=== PATIENT | female | born 1970 | race Caucasian/White ===

== ENCOUNTER → 2016-09-28 | Outpatient (CLI) | payer BC ==
[~2016-09-28] MED LIST: CALC-5 PO; FLUO20CA34 PO; IMITREX PO; IRON PO; LEVO100T PO; MULT-506 PO; OMEG10007 PO; OMEP40CA41 PO; OXYC-57 PO; TRAZ50TA35 PO; [UNRECOGNIZED DRUG - REMARK]
== END | disposition home or self-care (01) ==
LOC: C.PAPS 14:29
PROVIDERS: ATTEND Obstetrics & Gynecology
DX: R68.89 Other general symptoms and signs (principal)

== ENCOUNTER 2016-11-02 04:48 | Observation (INO) | payer BC ==
--- NOTE | 2016-10-09 10:06 | PAT Medication Instructions ---
Service Date Oct 09, 2016. Current Home Medication List Calcium-Magnesium W/ Vitamin D (Calcium 500), 600 MG PO QAM Fluoxetine Hcl (Prozac), 20 MG PO QAM Levothyroxine Sodium (Synthroid), 100 MCG PO QAM Multivitamin (Multivitamin), 1 TAB PO QAM Omeprazole (Prilosec), 40 MG PO QAM [Imitrex], 1 TAB PO PRN [Iron], 1 TAB PO QAM Medication Instructions For Your Scheduled Surgery - Hold the following medications the morning of surgery: Calcium-Magnesium W/ Vitamin D (Calcium 500), 600 MG PO QAM [Iron], 1 TAB PO QAM Multivitamin (Multivitamin), 1 TAB PO QAM - Take the following medications the morning of surgery with a sip of water OTHERWISE NOTHING TO EAT OR DRINK AFTER MIDNIGHT: Omeprazole (Prilosec), 40 MG PO QAM Fluoxetine Hcl (Prozac), 20 MG PO QAM Levothyroxine Sodium (Synthroid), 100 MCG PO QAM [Imitrex], 1 TAB PO PRN If you have any questions please call us at [phone] or [phone] or [phone]
[2016-10-09 10:43] LABS: BASO % 0.5 %; BASO ABS # 0.03 K/uL (0-0.2); COMPLETE YES; EOS % 2.5 %; HEMATOCRIT 37.4 % (37-47); IG% 0.5 %; LYMPH % 22.2 %; LYMPH ABS # 1.43 K/uL (1.2-3.4); MEAN CELL VOLUME 89.9 fL (80-100); MEAN CORPUSCULAR HEMOGLOBIN 30.3 pg (25-34); MEAN CORPUSCULAR HGB CONC 33.7 g/dl (32-36); MEAN PLATELET VOLUME 12.1 fL (7.4-10.4); MONO % 5.9 %; NEUT % 68.4 %; PLATELET COUNT 198 K/uL (130-400); RED BLOOD COUNT 4.16 M/uL (4.2-5.4); WHITE BLOOD COUNT 6.45 K/uL (4.8-10.8)
[2016-10-09 11:04] LABS: CALCIUM 8.9 mg/dl (8.5-10.1); CREATININE 0.85 mg/dl (0.60-1.20); POTASSIUM 4.1 mmol/L (3.5-5.1)
--- NOTE | 2016-11-01 10:40 | HISTORY & PHYSICAL EXAMINATION ---
DATE OF ADMISSION: 11/02/2016 HISTORY OF PRESENT ILLNESS: This is a 46-year-old G1, P1 with a prior vaginal delivery who has had ongoing menstrual issues. The patient previously underwent an endometrial ablation in 2014. She never stopped bleeding for any length of time and actually initially presented for a TLH in October of 2015, however says she had second thoughts at that time and decided not to have surgery. She has now returned stating that her periods are occurring approximately every other month but include pain so difficult that it causes nausea and sometimes vomiting and the bleeding can range from very light to heavy enough to cause her to change a pad and tampon every several hours. 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 She wishes definitive treatment at this time requests to go forward with a total laparoscopic hysterectomy. The patient will be retaining her ovaries. ALLERGIES: BEES AND WASPS. MEDICATIONS: Fish oil, iron supplement, calcium, Imitrex as needed, trazodone at bedtime, Prozac 20 mg daily, women's multivitamin, omeprazole 40 daily, and Synthroid 100 mcg daily. PAST MEDICAL HISTORY: Anxiety, breast hypertrophy, chronic rhinitis, dysmenorrhea, heartburn, gastroesophageal reflux, menorrhagia and a history of an HPV test that was positive in 2015; however, had normal cytology at that time. Please note her Pap in August of 2016 was normal with HPV negative. Additional past medical history: Arthritis, depression, hypothyroidism and migraines. PAST SURGICAL HISTORY: Cryo on the cervix and tubal ligation. FAMILY HISTORY: Maternal aunt with uterine cancer. Otherwise, negative for breast, colon or ovarian cancers. SOCIAL HISTORY: , nonsmoker, nonuser of alcohol or drugs. PHYSICAL EXAMINATION: VITAL SIGNS: At last exam were 110/72, BMI of 30. GENERAL: The patient was generally alert, in no acute distress. HEART: Regular rate and rhythm. LUNGS: Clear to auscultation bilaterally. ABDOMEN: Soft and nontender. GENITOURINARY EXAMINATION: Showed a normal sized uterus approximately 9-10 cm and ovaries normal bilaterally. ASSESSMENT AND PLAN: A 46-year-old with menorrhagia, dysmenorrhea, status post tubal and ablation who presents for definitive treatment via TLH. Risks, benefits and alternatives have been discussed at length with the patient using illustrations as well over the course of multiple visits throughout the last year. The patient desires to proceed and surgery is planned for 11/02/2016.
[~2016-11-02] VITALS: Ht 160 cm; Wt 78.8 kg
[2016-11-02] VITALS (7 sets, daily range): BP systolic 108–123; BP diastolic 63–78; PULSE 61–95; TEMP 36.3–36.7; O2SAT 93–97; Ht 160 cm; Wt 78.8 kg
[~2016-11-02 04:48] MED LIST changes: -OMEG10007 PO; -OXYC-57 PO; -TRAZ50TA35 PO; -[UNRECOGNIZED DRUG - REMARK]
[2016-11-02] MEDS ORDERED: CEFAZOLIN 2000 MG/60 ML D5W 50 ML IV SCH (06:00)
[2016-11-02] MEDS ORDERED: LACTATED RINGER'S 1000ML 1,000 ML IV SCH ×2 (06:00)
[2016-11-02] MEDS ORDERED: FENTANYL CITRATE INJ 50 MCG/1 ML 2 ML VIAL ONE ×2 (06:48→09:31)
[2016-11-02] MEDS ORDERED: MIDAZOLAM HCL 1 MG/ML 2ML VIAL ONE (06:48)
[2016-11-02] MEDS ORDERED: METHYLENE BLUE 0.5% 10 ML VIAL ONE (06:51)
[2016-11-02] MEDS ORDERED: SCOPOLAMINE 1.5 MG TDSY TD ONE (07:13)
--- NOTE | 2016-11-02 07:20 | History & Physical Bridge - [place] ---
H&P Re-Evaluation Bridge Note: I have examined the patient, reviewed the History & Physical and in the interval since the performance of the History & Physical I have noted the following changes of clinical significance: No changes noted
[2016-11-02] MEDS ORDERED: HYDROmorphone INJ 2 MG/ML SYR/VIAL ONE (07:55)
[2016-11-02] MEDS ORDERED: NEOSTIGMINE METHYLSULFATE 5 MG/5 ML SYR ONE (08:02)
[2016-11-02] MEDS ORDERED: DEXAMETHASONE SOD INJ 4 MG/ML VIAL ONE (08:02)
[2016-11-02] MEDS ORDERED: GLYCOPYRROLATE INJ 0.2 MG/ML VIAL ONE (08:02)
[2016-11-02] MEDS ORDERED: PROPOFOL IV EMULSION 10 MG/ML 20 ML VIAL IV ONE (08:02)
[2016-11-02] MEDS ORDERED: ROCURONIUM BROMIDE 10 MG/ML 5 ML VIAL ONE (08:02)
[2016-11-02] MEDS ORDERED: ONDANSETRON INJ 2 MG/ML 2 ML VIAL ONE (08:02)
[2016-11-02] MEDS ORDERED: LIDOCAINE HCL 2% 2 ML VIAL (20MG/ML) ONE (08:02)
[2016-11-02] MEDS ORDERED: METOCLOPRAMIDE HCL INJ 5 MG/ML 2 ML VIAL ONE (08:02)
[2016-11-02] MEDS ORDERED: KETOROLAC TROMETHAMINE 30 MG/ML VIAL ONE (08:54)
[2016-11-02] MEDS ORDERED: MEPERIDINE HCL 25 MG/ML CARP IV PRN (09:45)
[2016-11-02] MEDS ORDERED: ONDANSETRON INJ 2 MG/ML 2 ML VIAL IV PRN ×2 (09:45→10:00)
[2016-11-02] MEDS ORDERED: EpHEDrine SULFATE INJ 50 MG/ML AMP IV PRN (09:45)
[2016-11-02] MEDS ORDERED: HYDROmorphone INJ 1 MG/ML SYR IV PRN (09:45)
[2016-11-02] MEDS ORDERED: LABETALOL HCL IV 5 MG/ML 20ML IV PRN (09:45)
[2016-11-02] MEDS ORDERED: FENTANYL CITRATE INJ 50 MCG/1 ML 2 ML VIAL IV PRN (09:45)
[2016-11-02] MEDS ORDERED: ATROPINE SULFATE 0.1 MG/ML 5ML SYR IV PRN (09:45)
--- NOTE | 2016-11-02 09:52 | [facility] Post Operative Brief Note ---
Immediate Operative Summary Operative Date November 02, 2016. Pre-Operative Diagnosis Menorrhagia Post-Operative Diagnosis Same as preop Procedure(s) Performed Total Laparoscopic Hysterectomy Bilateral Salpingectomy; Cystoscopy Surgeon Dr. Giron Test Consultant Surgeon(s) None Estimated Blood Loss 25 ML Findings Extensive adhesions of large bowel and omentum over the L adnexal area up to uterine fundus. Normal uterus with small fibroids, tubes with prior ligation, normal ovaries bilaterally. Specimens A. Cervix, Uterus, and Bilateral Fallopian Tubes Complication(s) None Disposition Recovery Room / PACU
[2016-11-02] MEDS ORDERED: OXYC-57 PO (09:53)
--- NOTE | 2016-11-02 09:54 | Discharge Instructions ---
Discharge Instructions Date of Service November 02, 2016. Visit Reason for Visit: Menorrhagia Discharge Discharge Diagnosis / Problem: hysterectomy Discharge Goals Goal(s): Specific goals Activity Recommendations Activity Limitations: per Instructions/Follow-up section Anesthesia . Post Anesthesia Instructions: If you have had General Anesthesia or IV Sedation: * Do not drive today. * Resume driving when surgeon permits. * Do not make important decisions or sign legal documents today. * Call surgeon for: 1. Temperature elevations greater than 101 degrees F. 2. Uncontrollable pain. 3. Excessive bleeding. 4. Persistent nausea and vomiting. 5. Medication intolerance (nausea, vomiting or rash). * For nausea and vomiting use only clear liquids such as: tea, soda, bouillon until nausea subsides, then gradually increase diet as tolerated. * If you have any concerns or questions, call your surgeon's office. If physician is unavailable and it is an emergency, call 911 or go to the nearest emergency room. . Instructions / Follow-Up Instructions / Follow-Up POST OPERATIVE: BOWEL FUNCTION/MEDICATIONS: 1. Constipation pain and discomfort are the most common complaints 5-7 days after surgery. Points 2-6 address the things that can help. 2. Chewing gum can help stimulate the gut and help improve digestion and motility. 3. Milk of Magnesia 1-2 times per day until return of bowel function. 4. Colace is a stool softener that helps. Taking this 2-3 times per day until bowel function returns to normal is highly recommended. 5. Dulcolax is a laxative that may be used if several days have passed without a bowel movement. Alternatively Miralax may be used daily instead. 6. Drink plenty of fluids as this will also reduce constipation. 7. Narcotic pain medications will be prescribed by your physician. They are safe to use and we encourage you to use them. If you are not allergic, ibuprofen will also be prescribed. Many patients will be able to transition off of the narcotic medications to ibuprofen by postoperative day 3. ACTIVITY RECOMMENDATIONS: 1. Get plenty of rest and listen to your body. If you are tired, take a nap. 2. You may shower, but do not take a tub bath until you see your doctor at the 2 week post operative visit. 3. Absolutely NO intercourse and nothing in the vagina until you are examined by your doctor at the 6 week visit. At that visit it will be determined when such activities can be resumed. This can range from 6-12 weeks after your surgery depending on healing time. 4. The main physical activity in the first week should be walking. By the second week you can slowly increase activity. There are no limits on walking up and down stairs. 5. Do not lift more than 5-10 lbs for 4 weeks. Remember the "one-handed rule", i.e. if you can lift something with only one hand it's likely okay. 6. Minimize tax record clerk like vacuuming and exercising for 4 weeks. "Overdoing it" can lead to incisions not healing, pain and vaginal bleeding , so again, listen to your body. 7. Driving can be resumed when you feel able. Do not drive within 24 hours of taking a narcotic medication. EXPECTATIONS: 1. Vaginal spotting, bleeding and discharge are common after surgery. There may even be an odor to the discharge which is often related to sutures used in the vagina. If you experience heavy vaginal bleeding, call the office number day or night [phone]. 2. Bladder discomfort is common after surgery from the catheter. This usually resolves in 1-2 weeks. 3. By the end of the 3rd or 4th week you should be feeling much better. It may take up to 6 weeks for your energy levels to return to normal. 4. Narcotic medications have side effects such as: dizziness, headache, nausea and/or vomiting. If you suspect your pain medication is causing problems, call our office and we may be able to prescribe an alternate medication. 5. The skin incisions are often covered with a liquid bandage. This will gradually peel off over time. CALL THE OFFICE IF YOU HAVE ANY OF THE FOLLOWIN. Temperature of 101 degrees or higher. 2. Severe abdominal or pelvic pain not relieved by pain medication. 3. Persistent nausea or vomiting. 4. Increased pain with urination or difficulty urinating. 5. Bright red bleeding that soaks more than 1 pad per hour. CONTACT PHONE NUMBERS: Main Office: [phone] Surgical Nurse: [phone] extension [phone] FOLLOW-UP: Post-Operative Appointments: * Individual instructions will have been given about the timing of your first examination, but this is usually at the end of the second week home. * You will need to call the office at soon after discharge to make the appointment for your post-op check-up if it has not already been scheduled. * Additional information regarding activity, sexual intercourse and when to return to work will be given at this appointment. WE WISH YOU A SPEEDY RECOVERY! Diet Recommendations Recommended Home Diet: resume previous diet Procedures Procedures Performed: Total Laparoscopic Hysterectomy Bilateral Salpingectomy; Cystoscopy Pending Studies Studies pending at discharge: no Medical Emergencies . Who to Call and When: Medical Emergencies: If at any time you feel your situation is an emergency, please call 911 immediately. . Non-Emergent Contact Non-Emergency issues call your: Primary Care Provider . . "Provider Documentation" section prepared by Ashley Giron. . [place] Drug Monitoring Program Search Results: patient reviewed within database, no issues identified
[2016-11-02] MEDS ORDERED: MEPERIDINE HCL 50 MG/ML CARP IV PRN ×2 (10:00)
[2016-11-02] MEDS ORDERED: IBUPROFEN 600 MG TAB PO PRN (10:00)
[2016-11-02] MEDS ORDERED: PROMETHAZINE HCL INJ 25 MG in SODIUM CHLORIDE 0.9% 50ML 50 ML IV PRN (10:00)
[2016-11-02] MEDS ORDERED: PROMETHAZINE HCL INJ 12.5 MG in SODIUM CHLORIDE 0.9% 50ML 50 ML IV PRN (10:00)
[2016-11-02] MEDS ORDERED: SIMETHICONE 80 MG CHEW PO PRN (10:00)
[2016-11-02] MEDS ORDERED: OXYCODONE/ACETAMINOPHEN 5-325 TAB PO PRN ×2 (10:00)
[2016-11-02] MEDS ORDERED: ACETAMINOPHEN 325 MG TAB PO PRN (10:00)
[2016-11-02] MEDS ORDERED: KETOROLAC TROMETHAMINE 30 MG/ML VIAL IV. PRN (10:00)
[2016-11-02] MEDS ORDERED: IV FLUIDS COMPLETED PRN (10:15)
--- NOTE | 2016-11-02 10:19 | Anesthesiology Progress Note ---
Anesthesia Post Op Note Date & Time November 02, 2016 at 10:19 Vital Signs Pain Intensity: 3 Vital Signs Past 12 Hours Date Time Temp Pulse Resp B/P Pulse Ox O2 Delivery O2 Flow Rate FiO2 11/02/16 10:05 36.2 70 19 120/74 95 Nasal Cannula 2 11/02/16 09:55 63 14 124/75 94 Nasal Cannula 2 11/02/16 09:45 62 14 120/90 95 Nasal Cannula 2 11/02/16 09:35 66 21 136/82 99 Mask 10 11/02/16 09:25 81 21 141/88 94 Mask 10 11/02/16 09:15 36.4 71 18 145/86 98 Mask 10 11/02/16 05:47 36.7 69 18 109/63 95 Room Air Notes Mental Status: alert / awake / arousable, participated in evaluation Pt Amnestic to Procedure: Yes Nausea / Vomiting: adequately controlled Pain: adequately controlled Airway Patency, RR, SpO2: stable & adequate BP & HR: stable & adequate Hydration State: stable & adequate Anesthetic Complications: no major complications apparent
--- NOTE | 2016-11-02 14:14 | OPERATIVE REPORT ---
DATE OF OPERATION: 11/02/2016 PREOPERATIVE DIAGNOSIS: Menorrhagia. POSTOPERATIVE DIAGNOSIS: Same. PROCEDURE: Total laparoscopic hysterectomy, bilateral salpingectomy and cystoscopy with robotic assist. SURGEON: Dr. Ashley Giron. CLAY MAKER: None. ESTIMATED BLOOD LOSS: 25 mL. FINDINGS: Extensive adhesions of the large bowel and the omentum over the left adnexal area up to the uterine fundus. Normal uterus with small fibroids. Tubes with prior ligation and normal ovaries bilaterally. SPECIMENS: Cervix, uterus and bilateral fallopian tubes. COMPLICATIONS: None. DISPOSITION: Stable to recovery room. DESCRIPTION OF PROCEDURE: Lisset was placed on the table in the dorsal lithotomy position with Yellofin stirrups, prepped and draped in standard sterile fashion and a hard time-out was taken prior to proceeding. Dash and a HomeTouch uterine manipulator were placed as is typical. An umbilical entry was then made in an optical manner. The abdomen was insufflated. Right and left lower quadrant ports were placed under direct visualization and surgery then began. We carefully dissected the omental and rectal/sigmoid adhesions from the left adnexal area using cold dissection and sharp dissection to the greatest degree possible and using cautery minimally and only were absolutely required. This took a significant amount of time and I am confident that at this time, bowel injury was avoided. Once the adnexal structures had been completely exposed, dissection began with freeing the left fallopian tube from the mesosalpinx and the uteroovarian ligament was ligated and divided. The round ligament was ligated and divided and a bladder flap was created as well as the posterior broad leaflet being skeletonized. Attention was then turned to the right adnexa, where the tube was again dissected off the mesosalpinx. The uteroovarian ligament was ligated and divided. The round ligament was ligated and divided and a bladder flap was completed. The uterine arteries were ligated and divided bilaterally and then colpotomy was completed circumferentially. The cervix, uterus and tubes were delivered through the vaginal outlet. Of note, the right fallopian tube became detached during this extraction process and was retrieved separately from the remainder of the specimen that will be sent together with the remainder of the specimen to pathology. The V-Loc suture was then introduced per vagina and used to close the vaginal cuff in a typical running nonlocked manner. The suture tail and needle were retrieved through a robotic port and suction irrigation was used to ensure good hemostasis at all working sites. Cystoscopy was performed after administration of methylene blue dye and a strong blue stained jet was seen from each ureteral orifice. The bladder was then drained and attention was turned to closure of the abdominal port. All instruments had been removed. The fascial layer was closed at the umbilical site with a UR-6 Vicryl suture and all ports were then closed using Monocryl at the skin level with a Dermabond dressing. The patient was then transferred to the recovery room in stable condition. I attest to the content of the Intraoperative Record and any orders documented therein. Any exceptio ns are noted below.
[2016-11-02 17:04] LABS: HEMATOCRIT 36.6 % (37-47)
[2016-11-02] MEDS ORDERED: DOCUSATE SODIUM 100 MG CAP PO SCH (20:00)
--- NOTE | 2016-11-14 08:52 | DISCHARGE SUMMARY ---
COURSE OF CARE: Lisset was admitted for a planned robotic total laparoscopic hysterectomy with bilateral salpingectomy and cystoscopy. Her surgery was completed on the planned date and was uncomplicated. Please see operative report for full details. Her postop course was notable for normal stable vital signs and a postop hemoglobin of 12.1 from 12.6. The patient was discharged to home in good condition on the same day as her surgery and instructed to follow up at the usual 2 and 6 week interval.
== END 2016-11-02 19:23 | disposition home or self-care (01) ==
LOC: C.ACU 04:48 → C.OBG 05:35
PROVIDERS: ADMIT Obstetrics & Gynecology; ATTEND Obstetrics & Gynecology
DX: D25.2 Subserosal leiomyoma of uterus (principal); N83.8 Other noninflammatory disorders of ovary, fallopian tube and broad ligament; F32.9 Major depressive disorder, single episode, unspecified; F41.9 Anxiety disorder, unspecified; E03.9 Hypothyroidism, unspecified; K21.9 Gastro-esophageal reflux disease without esophagitis; Z80.49 Family history of malignant neoplasm of other genital organs